=== PATIENT | female | born 1960 | race Hispanic/Latino ===

== ENCOUNTER → 2018-08-10 | Day surgery (SDC) | payer OTHER ==
[~2018-08-10] MED LIST: ATORVASTATIN CA10 MG PO; FENTANYL CITRATE/PF 100MCG/2 ML INJ ONE; HUMALOG100 UNIT/1 SQ; INSULIN REGULAR, HUMAN 100 UNIT/1 ML 3ML VIAL ONE; METFORMIN HCL500 MG PO; MIDAZOLAM HCL 2 MG/2 ML VIAL ONE; PROPOFOL IV EMULSION 10 MG/ML 20 ML VIAL ONE
--- NOTE | 2018-08-10 23:22 | Operative Report ---
DATE OF PROCEDURE: 08/10/2018 SURGEON: Gentry Andrews MD PROCEDURE: EGD with esophageal dilatation and biopsies. INDICATION FOR PROCEDURE: Dysphagia, upper abdominal pain, heartburn. MEDICATIONS: The patient was done under MAC, please see anesthesiologist's note. PROCEDURE IN DETAIL: With the patient in left lateral decubitus position, a flexible fiberoptic Olympus gastroscope was introduced into the esophagus under direct visualization without any difficulty. There was a serpiginous ulcer noted in the distal esophagus. There was no active bleeding. A tongue of velvety red mucosa was noted to extend proximally from the GE junction. Biopsies were obtained to rule out Trujillo's. There was a mild stricture noted at the GE junction, that was dilated to size 52-[place]. The scope was then advanced with ease into the stomach and mucosa overlying the antrum and the body revealed some patchy erythema and [id number] edema and biopsies were obtained and sent to stain for H pylori. Hyperplastic-appearing polyps were noted in the body of the stomach and somewhat partially excised with cold biopsy forceps. Pylorus was of normal contour and shape. It was intubated with ease and the scope was advanced all the way to the second portion of the duodenum. Biopsies were obtained from the proximal second portion and the duodenal bulb to rule out sprue. The scope was then withdrawn back into the stomach and retroflexed and mucosa overlying the fundus and the cardia appeared to be within normal limits. The scope was then straightened out. The stomach was decompressed. The scope was subsequently withdrawn. The patient tolerated the procedure well. IMPRESSION: 1. Rule out Trujillo esophagus. 2. Serpiginous ulcer in the distal esophagus. 3. Esophagus dilated to size 52-[place]adian Over[place]. 4. Gastritis, biopsied. Biopsies sent to stain for Helicobacter pylori. 5. Gastric polyps, some partially excised with the cold biopsy forceps. 6. Rule out sprue. PLAN: Follow up histology. Initiate Protonix 40 mg 1 p.o. q.a.m. before meals. Gentry Andrews MD [facility] [place]/CARIEL /[id number] cc: Annetta Mosley MD
== END | disposition home or self-care (01) ==
LOC: OR 10:44
PROVIDERS: ATTEND Internal Medicine Gastroenterology
DX: K29.70 Gastritis, unspecified, without bleeding (principal); K31.7 Polyp of stomach and duodenum; K22.2 Esophageal obstruction; K22.10 Ulcer of esophagus without bleeding; K21.9 Gastro-esophageal reflux disease without esophagitis; K44.9 Diaphragmatic hernia without obstruction or gangrene; E11.9 Type 2 diabetes mellitus without complications; Z01.810 Encounter for preprocedural cardiovascular examination; Z79.4 Long term (current) use of insulin; Z68.29 Body mass index [BMI] 29.0-29.9, adult
CPT/HCPCS: 36415; 43239; 43450; 82948; 93005; J2250; J2704